=== PATIENT | male | born 1995 | race Caucasian/White ===

== ENCOUNTER 2017-09-01 11:01 | Day surgery (SDC) | payer OTHER ==
[2017-09-01] MEDS ORDERED: CEFAZOLIN/Water 2 GM/20 ML SYRINGE ONE (11:36)
[2017-09-01] MEDS ORDERED: Fentanyl 100 MCG/2 ML VIAL ONE ×2 (12:49→14:13)
[2017-09-01] MEDS ORDERED: Bupivacaine 0.25% HCL 30 ML VIAL ONE (13:32)
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
[2017-09-01] MEDS ORDERED: Ketorolac Tromethamine 30 MG/ML VIAL ONE (16:42)
[2017-09-01] MEDS ORDERED: Dexamethasone 20 MG/5 ML VIAL ONE (16:42)
[2017-09-01] MEDS ORDERED: Ondansetron HCl/PF 4 MG/2 ML Vial ONE (16:42)
[2017-09-01] MEDS ORDERED: Propofol 200 MG/20 ML VIAL ONE (16:42)
[2017-09-01] MEDS ORDERED: Metoclopramide HCl 10 MG/2 ML VIAL ONE (16:42)
[2017-09-01] MEDS ORDERED: Glycopyrrolate 0.2 MG/ML 5 ML SYRINGE ONE (16:42)
[2017-09-01] MEDS ORDERED: diphenhydrAMINE 50 MG/ML VIAL ONE (16:42)
--- NOTE | 2017-09-01 17:07 | RAD ---
THREE VIEWS OF THE LEFT HAND 09/01/17 COMPARISON: None. HISTORY: Fifth metacarpal fracture. FINDINGS/IMPRESSION: Three limited intraoperative fluoroscopic views of the left hand show percutaneous pins spanning a fr acture of the distal fifth metacarpal. No perihardware lucency is seen. POS: AMANDA
== END 2017-09-01 15:25 | disposition home or self-care (01) ==
LOC: SDC 11:01
PROVIDERS: ATTEND Orthopaedic Surgery
PROC: 0PSQ04Z Reposition Left Metacarpal with Internal Fixation Device, Open Approach (ICD-10-PCS; principal; 2017-09-01)
DX: S62.337A Displaced fracture of neck of fifth metacarpal bone, left hand, initial encounter for closed fracture (principal); K21.9 Gastro-esophageal reflux disease without esophagitis; D80.2 Selective deficiency of immunoglobulin A [IgA]; Z98.890 Other specified postprocedural states
CPT/HCPCS: 76001; 96374; J1100; J1200; J1885; J2405; J2704; J2765; J3010; S0020